=== PATIENT | female | born 1975 | race Caucasian/White ===

== ENCOUNTER 2022-10-11 07:07 | Emergency (ER) | payer OTHER ==
[~2022-10-11] VITALS: Ht 157.5 cm; Wt 81.6 kg
[2022-10-11] MEDS ORDERED: IV NORMAL SALINE 1000 ML BAG IV ONE (07:30)
[2022-10-11] MEDS ORDERED: PROCHLORPERAZINE EDISYLATE 10 MG/2 ML VIAL IV ONE (07:30)
[2022-10-11] MEDS ORDERED: MECLIZINE HCL 25 MG TABLET PO ONE (07:30)
[2022-10-11] MEDS ORDERED: AMLODIPINE (07:34)
[2022-10-11] MEDS ORDERED: CARVEDILOL (07:34)
[2022-10-11] MEDS ORDERED: PROCHLORPERAZINE EDISYLATE 10 MG/2 ML VIAL ONE (07:37)
[2022-10-11] MEDS ORDERED: MECLIZINE HCL 25 MG TABLET ONE (07:37)
[2022-10-11 07:45] LABS: HEMATOCRIT 38.3 % (31.2-41.9); MEAN CORPUSCULAR HEMOGLOBIN 32.3 uug (24.7-32.8); PLATELET COUNT (AUTO) 227 K/uL (179-408)
--- NOTE | 2022-10-11 07:51 | NUR ---
Pt seen by . Safety measures in place. Will continue to monitor.
--- NOTE | 2022-10-11 08:12 | NUR ---
UA sent to lab. Safety measures in place. Will continue to monitor.
--- NOTE | 2022-10-11 08:15 | NUR ---
Pt transported for CT scan.
[2022-10-11 08:19] LABS: CARBON DIOXIDE 23 mmol/L (21-32); CHLORIDE 106 mmol/L (98-107); CREATININE 1.5 mg/dL (0.6-1.3); GLUCOSE 91 mg/dL (74-106); POTASSIUM 3.9 mmol/L (3.5-5.1); UREA NITROGEN, BLOOD 28 mg/dL (7-18)
[2022-10-11 08:25] LABS: *BILIRUBIN,URIN NEGATIVE (NEGATIVE); *CLARITY,URINE CLEAR (CLEAR); *COLOR,URINE YELLOW (YELLOW); *KETONES,URINE NEGATIVE (NEGATIVE); *UROBILINOGEN,URINE 0.2 E.U./dl (NORMAL); LEUKOCYTE ESTERASE ,URINE NEGATIVE (NEGATIVE); NITRITE, URINE NEGATIVE (NEGATIVE); PH,URINE 6.5 (5.0-8.0); UGLUCOSE NEGATIVE (NEGATIVE)
[2022-10-11 08:27] LABS: ASPARTATE AMINOTRANSFERASE 17 U/L (15-37); BILIRUBIN,DIRECT 0.1 mg/dL (0.0-0.2); BILIRUBIN,TOTAL 0.3 mg/dL (0.2-1.0); TOTAL PROTEIN, SERUM 6.4 g/dL (6.4-8.2)
[2022-10-11 08:34] LABS: LIPASE 204 U/L (73-393)
[2022-10-11 10:27] LABS: ALKALINE PHOSPHATASE 76 U/L (50-136)
[2022-10-11 10:28] LABS: ALANINE AMINOTRANSFERASE 20 U/L (14-59)
--- NOTE | 2022-10-11 11:43 | NUR ---
Pt in stable condition. Pt able to ambulate without dizziness. Safety measures in place. Will continue to monitor.
[2022-10-11 12:45] VITALS: BP 120/69
--- NOTE | 2022-10-11 12:45 | NUR ---
Patient discharged to home in stable condition. Written and verbal after care instructions given. Patient verbalizes understanding of instructions. Stressed follow up or return to ER for worsening s/s.
[2022-10-11 13:35] LABS: *BLOOD, URINE TRACE (NEGATIVE)
[2022-10-11 19:09] LABS: BACTERIA,URINE FEW /HPF (NONE SEEN); RBC,URINE 0-3 /HPF (0-3); SQUAMOUS EPITHELIAL CELL,UR FEW /HPF (NONE SEEN); WBC,URINE NONE SEEN /HPF (0-3)
== END 2022-10-11 12:45 | disposition home or self-care (01) ==
LOC: ER 07:07
DX: R55 Syncope and collapse (principal); R07.89 Other chest pain; I12.0 Hypertensive chronic kidney disease with stage 5 chronic kidney disease or end stage renal disease; N18.6 End stage renal disease; Z94.0 Kidney transplant status; Z79.899 Other long term (current) drug therapy
CPT/HCPCS: 99285; 96374; 96361; 70450; 71045; 80076; 80048; 81001; 83880; 83690; 85025; 85730; 84484 ×2; 36415; 93005; J0780; J7040; A4663; J8597